=== PATIENT | male | born 1980 | race Caucasian/White ===

== ENCOUNTER 2016-10-03 15:18 | Emergency (ER) | payer OTHER | END 2016-10-03 15:57 | disposition home or self-care (01) | LOC: ER 15:18 | DX: J20.8 Acute bronchitis due to other specified organisms (principal); K02.9 Dental caries, unspecified; I10 Essential (primary) hypertension; F17.210 Nicotine dependence, cigarettes, uncomplicated; Z79.899 Other long term (current) drug therapy; Z88.6 Allergy status to analgesic agent | CPT/HCPCS: 71020; 99283-25 ==